=== PATIENT | female | born 1960 | race Caucasian/White ===

== ENCOUNTER 2016-07-19 06:17 | Emergency (ER) | payer BC ==
--- NOTE | 2016-07-19 19:07 | ER ---
ADMIT: 07/19/2016 RM/LOC: ER [facility] MR#: [id number] [address] [id number] [address] [place] [id number] Emergency Room Report SEX: F AGE: 55 : 1960 DATE: 07/19/2016 HISTORY OF PRESENT ILLNESS: The patient is a 55-year-old female with a past medical history of atrial fibrillation, who was brought to the ER because she woke up an hour ago from sleep with heart racing, and tightness in the chest. The patient is already taking two medications for atrial fibrillation and is compliant with it, and states at 0500 hours when she woke up, she took a dose of the medication. The patient denies any obvious chest pain or shortness of breath. PHYSICAL EXAMINATION: GENERAL: In the ER, the patient was mildly to moderately distressed, anxious. VITAL SIGNS: Heart rate was ranging from 115 to 135, it was irregularly irregular. HEAD AND NECK: Exam was noncontributory CHEST: Clear to auscultation. CARDIOVASCULAR: Rapid heart rate which was irregular. Peripheral pulses equal bilaterally. ABDOMEN: Soft. EXTREMITIES: No lower extremity pitting edema. The rest of the physical exam is noncontributory. The patient's blood pressure was holding, and patient received IV fluids and Cardizem 10 mg IV, which controlled the rate from 120s to 130s to 88. Chest x- ray was noncontributory and negative. EKG at the first admission was atrial fibrillation without any ST or T changes. Cardiac enzymes are negative. The rest of the lab works were all negative. The patient states she feels better, the palpitations have resolved. The only thing is she feels generally tired and she wants to go home and sleep. The patient was in no distress or pain, rate was controlled, and patient is stable to be discharged home. Phong Ervin MD/ [facility]per JOB #: [id number] CC: Phong Ervin MD, Attending Physician Lora Burns, Family Physician
== END 2016-07-19 07:50 | disposition home or self-care (01) ==
LOC: ER 06:17
DX: I48.91 Unspecified atrial fibrillation (principal); R00.2 Palpitations; Z88.0 Allergy status to penicillin; Z88.2 Allergy status to sulfonamides; Z90.49 Acquired absence of other specified parts of digestive tract